=== PATIENT | female | born 1960 | race Caucasian/White ===

== ENCOUNTER → 2018-03-20 | Outpatient (CLI) | payer MEDICARE, OTHER ==
[2014-08-15 08:40] VITALS: BP 158/90
[~2018-03-20] MED LIST: ARIP10TA9 PO; ARIP15TA3 PO; BUPR100T6 PO; CARI350T14 PO; CELE200C PO; CLON2TAB9 PO; DULO60CA6 PO; GABA800T2 PO; HYDR-963 PO; HYDR16TA PO; HYDR50CA2 PO; LEVO150T5 PO; LISI-334 PO; MEMA10TA PO; OXYC-328 PO; TIZA4TAB PO; TRAZ-85 PO
== END | disposition home or self-care (01) ==
LOC: PMGWOUND 10:47
PROVIDERS: ATTEND Emergency Medicine Undersea and Hyperbaric Medicine
DX: L98.491 Non-pressure chronic ulcer of skin of other sites limited to breakdown of skin (principal); L73.2 Hidradenitis suppurativa; M79.7 Fibromyalgia; F41.9 Anxiety disorder, unspecified; F32.9 Major depressive disorder, single episode, unspecified; E78.5 Hyperlipidemia, unspecified; E66.9 Obesity, unspecified; Z68.43 Body mass index [BMI] 50.0-59.9, adult; Z87.891 Personal history of nicotine dependence
CPT/HCPCS: 99214; G0463

== ENCOUNTER → 2018-03-27 | Outpatient (CLI) | payer MEDICARE, OTHER ==
[2014-08-15 08:40] VITALS: BP 158/90
== END | disposition home or self-care (01) ==
LOC: PMGWOUND 08:58
PROVIDERS: ATTEND Emergency Medicine Undersea and Hyperbaric Medicine
DX: L98.492 Non-pressure chronic ulcer of skin of other sites with fat layer exposed (principal); F41.9 Anxiety disorder, unspecified; F32.9 Major depressive disorder, single episode, unspecified; L73.2 Hidradenitis suppurativa; M79.7 Fibromyalgia; E78.5 Hyperlipidemia, unspecified; E66.9 Obesity, unspecified; Z68.43 Body mass index [BMI] 50.0-59.9, adult; Z87.891 Personal history of nicotine dependence
CPT/HCPCS: 97597

== ENCOUNTER → 2018-04-03 | Outpatient (CLI) | payer MEDICARE, OTHER ==
[2014-08-15 08:40] VITALS: BP 158/90
[~2018-04-03] MED LIST changes: +HYDR-3135 PO; -HYDR-963 PO
== END | disposition home or self-care (01) ==
LOC: PMGWOUND 08:52
PROVIDERS: ATTEND Emergency Medicine Undersea and Hyperbaric Medicine
DX: L98.491 Non-pressure chronic ulcer of skin of other sites limited to breakdown of skin (principal); M79.7 Fibromyalgia; F41.9 Anxiety disorder, unspecified; E78.5 Hyperlipidemia, unspecified; L73.2 Hidradenitis suppurativa; F32.9 Major depressive disorder, single episode, unspecified; E66.9 Obesity, unspecified; Z68.43 Body mass index [BMI] 50.0-59.9, adult; Z87.891 Personal history of nicotine dependence
CPT/HCPCS: 99214; G0463

== ENCOUNTER → 2018-04-17 | Outpatient (CLI) | payer OTHER ==
[2014-08-15 08:40] VITALS: BP 158/90
[~2018-04-17] MED LIST changes: -GABA800T2 PO; +GABA800T3 PO; -OXYC-328 PO; +OXYC1TAB22 PO
== END | disposition home or self-care (01) ==
LOC: PMGWOUND 09:02
PROVIDERS: ATTEND Emergency Medicine Undersea and Hyperbaric Medicine
DX: L73.2 Hidradenitis suppurativa (principal); M79.7 Fibromyalgia; F41.9 Anxiety disorder, unspecified; E78.5 Hyperlipidemia, unspecified; F32.9 Major depressive disorder, single episode, unspecified; E66.9 Obesity, unspecified; Z87.891 Personal history of nicotine dependence; Z68.43 Body mass index [BMI] 50.0-59.9, adult
CPT/HCPCS: 99213

== ENCOUNTER → 2019-11-01 | Outpatient (CLI) | payer MEDICAID, MEDICARE, OTHER ==
[~2019-11-01] VITALS: Ht 154.9 cm; Wt 132.9 kg
[~2019-11-01] MED LIST changes: -GABA800T3 PO; +GABA800T5 PO; +LIDOCAINE 1% Multi-Dose 20 ML VIAL. ONE; +LIDOCAINE WITH 8.4% SOD BICARB 3 ML DISP.SYRIN. INJ ONE; -TIZA4TAB PO; +TIZA4TAB2 PO; +TRAZ-118 PO; -TRAZ-85 PO
[2019-11-01 13:22] VITALS: BP 143/66
--- NOTE | 2019-11-01 15:39 | RAD ---
Exam: Fluoroscopic and ultrasound guided right percutaneous inserted central venous catheter placement 11/01/2019 1:36 PM .Indication: Antibiotics Cellulitis Technique: Informed oral and written consent were obtained. The right upper extremity was prepped and draped using sterile barrier technique. All elements of maximal sterile barrier technique including the use of a cap, mask, sterile gown, sterile gloves, large sterile sheet, appropriate hand hygiene, and 2% chlorhexidine for cutaneous antisepsis (or acceptable alternative antiseptic per current guidelines) were followed for this procedure.. Real-time ultrasound demonstrated a patent right basilic vein which was prepped and draped in usual sterile fashion. 1% lidocaine used for local anesthesia. Using real-time ultrasound guidance the access needle percutaneously punctured the selected right basilic vein. Reference ultrasound images were saved to the medical record. A guidewire was advanced through the needle to the cavoatrial junction, and a peel-away sheath placed. The catheter was cut to length and inserted through the peel-away sheath such that its tip is at the cavoatrial junction. The wire and sheath were removed, and the catheter secured in place, and a sterile dressing was applied. Catheter was found to flush and aspirate normally. No immediate complications are identified. FLUORO TIME: 0.4 DOSE AREA PRODUCT: 3 Gycm2 Impression: Ultrasound and fluoroscopically guided placement of a right upper extremity PICC line.
== END ==
LOC: INTRAD 12:36
PROVIDERS: ATTEND Physician Assistant
DX: Z45.2 Encounter for adjustment and management of vascular access device (principal); L03.818 Cellulitis of other sites
CPT/HCPCS: 36573; C1751; C1892; J3490; 77001

== ENCOUNTER → 2020-06-08 | Outpatient (CLI) | payer OTHER, MEDICAID ==
[2019-11-01 13:22] VITALS: BP 143/66
[~2020-06-08] MED LIST changes: -LIDOCAINE 1% Multi-Dose 20 ML VIAL. ONE; -LIDOCAINE WITH 8.4% SOD BICARB 3 ML DISP.SYRIN. INJ ONE; -LISI-334 PO; +LISI20TA18 PO
--- NOTE | 2020-06-08 17:32 | KCIC ---
MR LUMBAR SPINE WO [id number] History: Reason: LUMBAR PAIN OVER ONE MONTH / Spl. Instructions: / History: LBP in recent weeks. Beka nick. Technique: Multiplanar, multi sequential MR imaging was performed of the lumbar spine. Comparison: None Findings: Slight grade 1 anterolisthesis L4 on L5. Normal vertebral body height. No fracture. Conus terminates at the normal location. No evidence of nerve root clumping. T12-L1: Disc bulge. Mild facet arthropathy. No canal narrowing. No neuroforaminal narrowing. L1-L2: Disc bulge. Mild facet arthropathy. No canal narrowing. Left subarticular recess narrowing. N o neuroforaminal narrowing. L2-L3: Right foraminal disc protrusion. Mild facet arthropathy. No canal narrowing. Moderate right n euroforaminal narrowing. No left neuroforaminal narrowing. L3-L4: Disc bulge. Advanced facet arthropathy. No canal narrowing. No neuroforaminal narrowing. L4-L5: Slight anterolisthesis. Broad-based disc bulge. Right facet synovial cyst measures 0.8 x 0.6 c m. Contributing to moderate to severe canal narrowing. Severe subarticular recess narrowing with disp lacement of the nerve roots. Moderate right and mild left neuroforaminal narrowing. L5-S1: Moderate facet arthropathy. No canal narrowing. No neuroforaminal narrowing. Impression: 1. Multilevel thoracolumbar spondylosis most prominent L4-L5. 2. L4-L5 advanced facet arthropathy with right synovial cyst contributing to moderate to severe jef l narrowing with nerve root displacement. Correlate for radiculopathy. 3. Multilevel neuroforaminal narrowing most prominent right L2-L3 and right L4-5. Electronically signed by: Juancarlos Gurrola DO (06/08/2020 5:30 PM) [id number]
== END ==
LOC: KCIC MRI 14:44
PROVIDERS: ATTEND Physician Assistant
DX: M47.816 Spondylosis without myelopathy or radiculopathy, lumbar region (principal); M48.061 Spinal stenosis, lumbar region without neurogenic claudication; M71.38 Other bursal cyst, other site; M51.25 Other intervertebral disc displacement, thoracolumbar region; M12.88 Other specific arthropathies, not elsewhere classified, other specified site
CPT/HCPCS: 72148